=== PATIENT | male | born 1935 | race Caucasian/White ===

== ENCOUNTER 2022-07-22 14:32 | Emergency (ER) | payer OTHER, SELFPAY ==
[2022-07-22] VITALS (40 sets, daily range): BP systolic 84–151; BP diastolic 47–107; PULSE 71–94; RESP 14–23; TEMP 36.7–37.1; O2SAT 57–98
--- NOTE | ~2022-07-22 | XR_ITS ---
EXAMINATION: XR shoulder RT min 2V INDICATION: Right shoulder pain and deformity TECHNIQUE: Two views of the right shoulder are submitted. COMPARISON: None FINDINGS: There is anterior and inferior dislocation of the right humeral head with respect to the gl enoid. No definite fracture is identified. 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 IMPRESSION: 1. Anterior and inferior dislocation of the right humeral head. Reviewed, dictated and finalized at location B.
--- NOTE | ~2022-07-22 | CT_ITS ---
EXAMINATION: CT brain wo con DATE: 07/22/2022 18:15 INDICATION: head injury . TECHNIQUE: Computed tomography (CT) of the head was performed without intravenous contrast. The mA wa s adjusted according to patient size. Iterative reconstruction technique was employed. The dose-lengt h product was 605.33 mGy-cm. COMPARISON: None FINDINGS: No acute intracranial hemorrhage or extra-axial fluid collection. No hydrocephalus, mass, or herniation. No acute ischemic infarct. Unremarkable dural venous sinus attenuation. No acute osseous abnormality. Small right frontal contusion The aerated spaces are clear. Mild atrophy and moderate chronic white matter change. Atherosclerotic intracranial calcification. Bi lateral lens replacements. IMPRESSION: No acute intracranial process. Reviewed, dictated and finalized at location K.
--- NOTE | ~2022-07-22 | XR_ITS ---
EXAM: XR shoulder RT min 2V DATE: 07/22/2022 17:43 HISTORY: post reduction . COMPARISON: Same date at 2:43 PM. FINDINGS/IMPRESSION: Successful interval reduction of the right shoulder dislocation. No fracture det ected. Reviewed, dictated and finalized at location K.
[2022-07-22] MEDS: PROPOFOL IV EMULSION 200 MG/20 ML VIAL 40 MG IV PUSH (17:30)
--- NOTE | 2022-07-22 17:43 | ED.GENADULT ---
HPI - General Adult General Chief complaint: Fall Stated complaint: fall, R shoulder deformity Time Seen by Provider: 07/22/22 16:20 History of Present Illness HPI narrative: 86-year-old male presenting the emergency department for evaluation after having a ground-level fall resulting in a right shoulder injury. 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 Patient denies any loss of consciousness. Patient does report decreased movement of the right shoulder. Patient is on Coumadin Related Data Allergies Allergy/AdvReac Type Severity Reaction Status Date / Time No Known Allergies Allergy Unknown Verified 06/24/22 10:02 Review of Systems Review of Systems: CONSTITUTIONAL: Denies fever, chills, or sweats. EYES: Denies visual changes, redness, or discharge. ENT: Denies rhinorrhea, congestion, sore throat, or otalgia. CARDIOVASCULAR: Denies chest pain, palpitations, or edema. RESPIRATORY: Denies cough or dyspnea. GASTROINTESTINAL: Denies abdominal pain, nausea, vomiting, or diarrhea. GENITOURINARY: Denies dysuria or hematuria. SKIN: Small skin laceration lateral to right eye MUSCULOSKELETAL: Right shoulder pain NEUROLOGIC: Denies headache, numbness, or weakness. PSYCHIATRIC: Denies anxiety or depression. 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 Pulmonary embolism Surgical History Surgical History H/O transurethral resection of prostate Family History Family History Father Patient's father is Sibling Family history of amyotrophic lateral sclerosis Patient's brother is Social History Social History Social History: Smoking status: Never smoker Second hand tobacco smoke exposure: No Alcohol intake: current Alcohol use details: Occasionally Substance use: never Substance use type: does not use Gender identity (if verbalized by the patient): Male Sexual Orientation (if Verbalized by the Patient): Straight or Heterosexual Exam Narrative: APPEARANCE: Well appearing, no pain, no distress, well-nourished. HEAD: normocephalic, atraumatic. EYES: PERRLA/EOMI, conjunctivae clear. NOSE: Normal no drainage EARS:TMS clear with good light reflex. THROAT: Pharynx clear, no exudate. NECK: Supple. No adenopathy, no masses. RESPIRATORY: Airway patent, respirations nonlabored. Clear to auscultation bilaterally, no rales, rhonchi, wheezing. CARDIOVASCULAR: Regular rate and rhythm without murmurs rubs or gallops. ABDOMINAL: Soft, nontender, nondistended, normal bowel sounds MUSCULOSKELETAL: Moves all extremities. Strength/ROM intact, No edema, No calf tenderness. NEURO: Alert. Cranial nerves II through XII intact. Intact SKIN: Warm, dry. Normal Color. 0.5 cm laceration lateral to right eye Course Course Emergency Course: Shoulder was successfully reduced and placed into a shoulder immobilizer. Laceration was repaired with Dermabond. Patient and were updated the results of the x-rays and CT. All questions and concerns were addressed. Patient was well-appearing at time of discharge. Vital Signs Vital signs: Vital Signs Temperature 98.0 F 07/22/22 14:34 Pulse Rate 78 07/22/22 14:34 Respiratory Rate 20 07/22/22 14:34 Blood Pressure 84/50 L 07/22/22 14:34 Pulse Oximetry 97 07/22/22 14:34 Oxygen Delivery Room Air 07/22/22 14:34 Temperature 98.8 F 07/22/22 17:34 Pulse Rate 80 07/22/22 18:04 Re
[2022-07-22] MEDS: SODIUM CHLORIDE 0.9% IV 1,000 ML 999 ML (18:34)
== END 2022-07-22 19:15 | disposition home or self-care (01) ==
PROVIDERS: Emergency Provider Emergency Medicine; PCP Family Medicine
DX: S43.014A Anterior dislocation of right humerus, initial encounter (principal); S01.81XA Laceration without foreign body of other part of head, initial encounter; I10 Essential (primary) hypertension; I27.82 Chronic pulmonary embolism; E78.5 Hyperlipidemia, unspecified; N40.0 Benign prostatic hyperplasia without lower urinary tract symptoms; H35.30 Unspecified macular degeneration; Z86.718 Personal history of other venous thrombosis and embolism; Z79.01 Long term (current) use of anticoagulants; W18.39XA Other fall on same level, initial encounter
CPT/HCPCS: 12011; 23650; 70450; 73030; 99285; J2704; J7030